=== PATIENT | male | born 1990 | race Caucasian/White ===

== ENCOUNTER 2017-05-13 17:46 | Emergency (ER) | payer OTHER, SELFPAY | END 2017-05-13 19:33 | disposition home or self-care (01) | PROVIDERS: Emergency Provider Emergency Medicine; Visit Provider Emergency Medicine | DX: G51.0 Bell's palsy (principal); F17.210 Nicotine dependence, cigarettes, uncomplicated | CPT/HCPCS: 70450; 70486; 72125; 99283 ==